=== PATIENT | male | born 1990 | race Caucasian/White ===

== ENCOUNTER 2019-05-23 12:19 | Emergency (ER) | payer MEDICAID ==
[~2019-05-23] VITALS: Ht 172.7 cm; Wt 59.0 kg
--- NOTE | 2019-05-23 12:46 | NUR ---
STEVE BLANCO AT BEDSIDE FOR MSE.
--- NOTE | 2019-05-23 12:58 | NUR ---
Patient discharged to home in stable conditon. Written and verbal after care instructions given. Patient verbalizes understanding of instructions. ALL BELONGINGS W/ PT. PT SELF-AMBULATED W/O DIFFICULTY.
[2019-05-23 12:59] VITALS: BP 120/78
== END 2019-05-23 13:00 | disposition home or self-care (01) ==
LOC: ER 12:19
DX: B34.9 Viral infection, unspecified (principal)
CPT/HCPCS: A4663

== ENCOUNTER 2019-08-10 19:14 | Emergency (ER) | payer MEDICAID ==
[~2019-08-10] VITALS: Ht 170.2 cm; Wt 61.2 kg
--- NOTE | 2019-08-10 19:54 | NUR ---
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
--- NOTE | 2019-08-10 20:26 | NUR ---
Patient discharged to home in stable conditon. Written and verbal after care instructions given. Patient verbalizes understanding of instructions. ambulatory with stable gait all belongings with pt
[2019-08-10 20:29] VITALS: BP 130/80
== END 2019-08-10 20:28 | disposition home or self-care (01) ==
LOC: ER 19:18
DX: S13.4XXA Sprain of ligaments of cervical spine, initial encounter (principal); M54.5 Low back pain; R51 Headache; V43.52XA Car driver injured in collision with other type car in traffic accident, initial encounter; Y93.89 Activity, other specified; Y92.89 Other specified places as the place of occurrence of the external cause; Y99.8 Other external cause status
CPT/HCPCS: A4663

== ENCOUNTER 2020-01-26 21:06 | Emergency (ER) | payer MEDICAID ==
[~2020-01-26] VITALS: Ht 170.2 cm; Wt 65.8 kg
--- NOTE | 2020-01-26 21:20 | NUR ---
Patient presents to ER with c/o of sore throat x 3 days. Patient placed in Bed 1A. Patient awake, alert denies difficulty breathing. Patient in no acute distress. Seen and examined by Dr. Junior on arrival. Addendum: 01/26/20 at 2142 by BRIANA error: pt placed in 2A. not 1A.
[2020-01-26] MEDS ORDERED: IBUPROFEN 600 MG TABLET PO ONE (21:30)
[2020-01-26] MEDS ORDERED: DEXAMETHASONE 0.5 MG/5 ML LIQ UDC PO ONE (21:30)
[2020-01-26] MEDS ORDERED: DEXAMETHASONE 0.5 MG/5 ML LIQ UDC ONE ×2 (21:33→21:36)
[2020-01-26] MEDS ORDERED: DEXAMETHASONE 5 MG/5 ML LIQUID UDC ONE (21:35)
[2020-01-26] MEDS ORDERED: IBUPROFEN 600 MG TABLET ONE (21:36)
--- NOTE | 2020-01-26 21:48 | NUR ---
Patient discharged to home in stable conditon. DC instructions given and reviewed with patient. Verbalized understanding. Left ER in stable condition. Ambulated with steady gait.
== END 2020-01-26 21:48 | disposition home or self-care (01) ==
LOC: ER 21:07
DX: J02.8 Acute pharyngitis due to other specified organisms (principal)
CPT/HCPCS: 36415; 86403; 87070; 99283; J8540 ×3; A4663